=== PATIENT | female | born 1945 | race Caucasian/White ===

== ENCOUNTER 2017-02-11 22:17 | Emergency (ER) | payer OTHER, MEDICARE ==
[~2017-02-11] VITALS: Ht 157.5 cm; Wt 76.8 kg
[~2017-02-11 22:17] MED LIST: FUR20 PO; GLPZ5T PO; LEVO88TA3 PO; METF500T4 PO; MULT-1018 PO; OMEG10005 PO; SIMV20TA4 PO
[2017-02-11 22:20] VITALS: BP 159/80; PULSE 78; RESP 16; O2SAT 99
--- NOTE | 2017-02-11 22:29 | ED.REPORT ---
HPI-Chest Pain 40 and Over Date of Service Feb 11, 2017 ED Provider: Dr. Pierre 71 y/o female with a hx of DM, asthma and irritable bowel presents to the ED complaining of chest pain that radiates to her neck, onset an hour ago. The pt was having dinner when the pain suddenly came on. She states her pain "feels like heart burn" and rates it 5/10 currently and 9/10 at its maximum. Associated sx include shortness of breath. She denies abdominal pain. Nursing Notes Stated Complaint: CHEST PAIN Chief Complaint: Chest Pain Nursing Notes Reviewed: Yes Allergies: Coded Allergies: hydromorphone (Verified Allergy, Unknown, 02/11/17) tramadol (Verified Allergy, Unknown, 02/11/17) codeine (Verified Adverse Reaction, Mild, NAUSEA, 02/11/17) Scheduled Furosemide (Furosemide) 20 Mg Tab Unknown Dose PO DAILY Glipizide (Glipizide) 5 Mg Tablet 5 MG PO DAILY Levothyroxine (Synthroid) 88 Mcg Tablet 88 MCG PO DAILY Metformin (Metformin) 500 Mg Tablet 500 MG PO BID Multivitamin (Multi Vitamin Daily) 1 Each Tablet 1 EACH PO DAILY [place]-3 Fatty Acids ([place]-3) 1,000 Mg Capsule 1,000 MG PO DAILY Simvastatin (Simvastatin) 20 Mg Tablet 20 MG PO HS General Time Seen by MD: 22:29 Chief Complaint Chest pain Hx Obtained From: Patient Sudden in Onset?: Yes Onset Occurred: 1 - 4 hours ago Symptom Duration: Since onset Location: : Chest left Quality: Painful Radiation: : Neck Severity: Current: Pain level 5 out of 10 Severity: Maximum: Pain level 9 out of 10 Recent Healthcare: No recent doctor visit Similar Sx Previous: No Past Medical History Past Medical History Irritable bowel Colitis Reports: Asthma, Diabetes mellitus Smoking History Never Smoker Social History Alcohol Use: 1-3 per week Other Social History: Good social support Ambulatory Status Independent Review of Systems Respiratory: Reports: Shortness of breath Cardiovascular: Reports: Chest pain GI: Denies: Abdominal pain Musculoskeletal: Reports: Neck pain Complete sys rev & neg: except as marked. Physical Exam Initial Vital Signs Vital Signs (First) Date Time Temp Pulse Resp B/P Pulse Ox O2 Delivery O2 Flow Rate FiO2 02/11/17 22:20 36.7 78 16 159/80 99 Room Air Initial VS: Reviewed, Vital signs normal Head / Eyes: Atraumatic, Normocephalic Extremities: Vascular intact, Neuro intact, No swelling, No tenderness Skin: Warm, Dry, No cyanosis Neurologic: Alert, Oriented, Nonfocal General/Constitutional: Awake, Alert, No acute distress, Cooperative Respiratory / Chest: Atraumatic, Breath sounds NL, Breath sounds = bilat, No respiratory distress, No rales, No rhonchi, No wheezing, No chest tenderness Cardiovascular: Heart rate NL, Regular rhythm, Heart sounds NL, No gallop, No murmurs, No rubs No edema Abdomen: Atraumatic, Soft, Non-tender, No guarding, No rebound, BS normoactive Neck: Atraumatic, Supple, Full range of motion, No JVD Interpretation & Diagnostics Lab Results Interpretation Result Diagram: 02/11/17222902/11/172229 Test 02/11/17 22:30 02/12/17 00:00 02/12/17 01:55 White Blood Count 8.4th/mm3 (3.8-10.1) Red Blood Count 4.59mil/mm3 (3.90-5.20) Hemoglobin 12.7g/dL (12.0-15.6) Hematocrit 38.6% (35.0-46.0) Mean Corpuscular Volume 84.1fL (81-100) Mean Corpuscular Hemoglobin 27.7pg (27.0-35.0) Mean Corpuscular Hemoglobin Concent 32.9% (32.0-37.0) Red Cell Distribution Width 15.1% (12.3-15.4) Platelet Count 206bil/L (150-400) Neutrophils (%) (Auto) 61.2% (40-74) Lymphocytes (%) (Auto) 26.6% (14-46) Monocytes (%) (Auto) 9.3% (4-12) Eosinophils (%) (Auto) 2.5% (0-5) Basophils (%) (Auto) 0.2% (0-3) Sodium Level 139mEq/L (134-144) Potassium Level 4.0mEq/L (3.5-5.2) Chloride Level 102mEq/L (97-108) Carbon Dioxide Level 24mmol/L (18-29) Blood Urea Nitrogen 16mg/dL (8-27) Creatinine 0.88mg/dL (0.57-1.00) Estimat Glomerular Filtration Rate 91mL/min (>59) Glucose Level 175mg/dL (60-99) Calcium Level 9.7mg/dL (8.5-10.1) Magnesium Level 1.8mg/dL (1.6-2.6) Total Bilirubin 0.2mg/dL (0.0-1.2) Aspartate Amino Transf (AST/SGOT) 13U/L (0-50) Alanine Aminotransferase (ALT/SGPT) 6U/L (0-32) Alkaline Phosphatase 88U/L (25-165) Total Protein 7.2g/dL (6.4-8.4) Albumin 4.1g/dL (3.4-5.0) Hold Purcell Top Tube Received (Received) D-Dimer 0.51mg/L FEU (<0.50) Troponin T 0.010ug/L (0.0-0.011) Lab Results Interpretation: Nonfasting glucose, normal troponin 2, mildly elevated d-dimer ECG Interpretation ECG Interpretation: Normal sinus rhythm. Rate 74. Time: 22:25 Interpreted by: ED physician X-Ray Chest Interpretation Chest Xray Interpretation: Result: normal View: Portable, 1 view Interpretation / Wet Read by: Wet read ED physician CT Chest Interpretation Conclusion: No evidence of pulmonary embolism or dissection. Somewhat mosaic lung attenuation pattern with mild airway thickening which raises the possibility of small airways disease. Signed by Dr. Liban Rodriguez 02/12/17 05:21 Study type: CT pulm angiogram Interpretation / Wet Read by: Interpret - Radiologist Re-Eval/Medical Decision Med Decision/Clinical Course 1-year-old female with a strong history of DVTs in the family presents with pleuritic chest pain. Troponin 2 is negative. EKG 2 is negative. D-dimer is mildly elevated at 0.51. CT chest angiogram was done which was negative. She is being discharged home with a diagnosis of costochondritis. Source of Hx: Old records Time of Eval: 03:15 Re-Evaluation/Progress Note: Rechecked pt. Discussed the need to test D-dimer. The pt understands and agrees with the plan. All questions answered. Time of Eval: 04:13 Re-Evaluation/Progress Note: Rechecked pt. Discussed lab results, imaging results and plan to do a CT. The pt understands and agrees with the plan. All questions answered. Time of Eval: 06:12 Patient Status: Condition improved Re-Evaluation/Progress Note: Rechecked pt. Discussed lab results, imaging results, diagnosis and plan to discharge. Pt understands and agrees with the plan. F/U instructions and RTER warning given. All questions addressed. Counseled Regarding: Diagnosis, Lab results, Need for follow-up, When/why to return to ED Discharge & Departure Primary Impression: Chest pain with low risk for cardiac etiology Additional Impression: Costochondritis, acute Disposition: Home Discharge Condition All VS Reviewed: Yes Condition: Stable Patient Instructions: Chest Pain (ED), Costochondritis (ED) Additional Instructions: There is no evidence with the workup we did of any serious heart or lung problem. Specifically, your EKG and heart enzymes are both normal [address] scan showed no significant abnormalities. The most likely causing her pain is inflammation of the rib joints called costochondritis. Ibuprofen as needed. Follow-up with your regular doctor for persistent symptoms. Referrals: Yaimle Bradley (PCP) [facility] Attestation Portions of this note were transcribed by Rosa Maria Cortes. I, , personally performed the history, physical exam and medical decision- making;I reviewed and confirmed the accuracy of the information in the transcribed note. Signed by Adam Underwood. 02/12/17 06:13 copies to: Yamile Bradley Howard L MD Feb 11, 2017 22:29 Rosa Maria Cortes Feb 11, 2017 22:32
[2017-02-11 22:34] VITALS: BP 141/76; PULSE 89; RESP 19; O2SAT 100
[2017-02-11 22:37] LABS: BASOPHILS % (AUTO) 0.2 % (0-3); EOSINOPHILS % (AUTO) 2.5 % (0-5); MONOCYTES % (AUTO) 9.3 % (4-12); Mean Corpuscular Hemoglobin 27.7 pg (27.0-35.0); Mean Corpuscular Volume 84.1 fL (81-100); NEUTROPHILS % (AUTO) 61.2 % (40-74); Platelet Count 206 bil/L (150-400)
[2017-02-11 22:58] LABS: TROPONIN T 0.01 ug/L (0.0-0.011)
[2017-02-11 23:09] LABS: Magnesium 1.8 mg/dL (1.6-2.6)
[2017-02-11 23:20] VITALS: BP 107/31; PULSE 70; RESP 15; O2SAT 99
[2017-02-12] MEDS ORDERED: LidocaineVisc 2%:Antacid 1:1 10 mL Syringe PO ONE (01:15)
[2017-02-12 01:34] VITALS: BP 107/50; PULSE 76; RESP 24; O2SAT 97
[2017-02-12 06:27] VITALS: BP 124/64; PULSE 88; RESP 18; O2SAT 100
--- NOTE | 2017-02-12 07:58 | DRSVH ---
PROCEDURE: X-RAY CHEST ONE VIEW, PORTABLE ([id number]) INDICATIONS: 71 year-old female with chest pain. TECHNIQUE: One view of the chest was acquired. COMPARISON: [facility], CR, ABDOMEN ACUTE SERIES, 06/19/2011, 15:17. [facility], RG, XR C XR 2 VIEW, 03/27/2006, 16:43. FINDINGS: Surgical changes and devices: Gastroesophageal junction surgical clips and bowel anastomotic stephenie are again noted. There is new midthoracic spinal stimulator. Lungs and pleura: No pleural effusions or pneumothorax. Lungs are clear. Mediastinum: Mediastinal contours appear normal. Heart size is normal. There is aortic atheroscler osis. Bones and chest wall: No suspicious bony lesions. There is new narrowing of the right acromiohumera l interval. Overlying soft tissues appear unremarkable. IMPRESSION: 1. No acute cardiopulmonary disease. 2. Interval development of right shoulder rotator cuff arthropathy. Dictated by: Nahum Paul M.D. on 02/12/2017 at 7:55 Approved by: Nahum Paul M.D. on 02/12/2017 at 7:56
--- NOTE | 2017-02-12 08:28 | DRSVH ---
PROCEDURE: CT ANGIO CHEST PULMONARY EMBOLISM ([id number]) INDICATIONS: pleurituc anterior chest pain, elev dimer TECHNIQUE: After the administration of intravenous contrast, 2 mm thick sections acquired from the pulmonary api eliazar to the posterior costophrenic angles. 3-dimensional maximum intensity projection (MIP) coronal a nd sagittal reformats were then acquired through the thorax. For radiation dose reduction, the follo wing was used: automated exposure control, adjustment of mA and/or kV according to patient size. COMPARISON: [facility], CR, XR CHEST 1VW (PORTABLE), 02/11/2017, 22:18. FINDINGS: Image quality: Excellent. Pulmonary arteries: Pulmonary arteries are normal in size, and demonstrate no intraluminal filling d efects to suggest central pulmonary embolism. Lungs and pleura: There are groundglass infiltrates bilaterally with mosaic attenuation. No pleural effusions or pneumothorax. Central and peripheral airways are patent. Mediastinum: Heart size is normal, without pericardial effusion. No mediastinal or hilar adenopathy . Thoracic aorta is normal in caliber and enhancement. Esophagus is normal in caliber. Small hiatal hernia. Bones and chest wall: No suspicious bony lesions. Ribs and thoracic spine appear intact throughout. Thyroid gland is normal. No axillary or supraclavicular adenopathy. Abdomen: Visualized upper abdominal solid organs appear normal in the early arterial phase of enhanc ement. IMPRESSION: 1. No evidence for central pulmonary embolism. 2. Bilateral groundglass infiltrates and mosaic attenuation. Differential diagnoses include hypersens itivity pneumonitis, small airway disease, and pulmonary edema. 3. Small hiatal hernia. No significant discrepancy with the cage shift manager radiology preliminary report. Dictated by: Amy Beckford M.D. on 02/12/2017 at 8:18 Approved by: Amy Beckford M.D. on 02/12/2017 at 8:26
== END 2017-02-12 06:28 | disposition home or self-care (01) ==
LOC: SED 22:17
DX: R07.81 Pleurodynia (principal); M94.0 Chondrocostal junction syndrome [Tietze]; R06.02 Shortness of breath; J45.909 Unspecified asthma, uncomplicated; E11.9 Type 2 diabetes mellitus without complications; Z79.84 Long term (current) use of oral hypoglycemic drugs; Z88.5 Allergy status to narcotic agent
CPT/HCPCS: 36415; 71010; 71275; 80053; 83735; 84484; 85025; 85378; 93005; 99285; Q9967